=== PATIENT | male | born 2000 | race Caucasian/White ===

== ENCOUNTER 2024-04-20 17:47 | Emergency (ER) | payer OTHER ==
[~2024-04-20] VITALS: Ht 182.9 cm; Wt 149.0 kg
[2024-04-20 17:55] VITALS: BP 120/77
[2024-04-20 18:00] VITALS: BP 104/65
[2024-04-20] MEDS ORDERED: SODIUM CHLORIDE 0.9% 1,000 ML IV ONE ×2 (18:00)
[2024-04-20] MEDS ORDERED: KETOROLAC TROMETHAMINE 30 MG/ML SDV IV ONE (18:00)
[2024-04-20] MEDS ORDERED: METOCLOPRAMIDE HCL 10 MG/2 ML SDV IV ONE (18:00)
[2024-04-20] MEDS ORDERED: DiphenhydrAMINE HCL 50 MG/ML SDV IV ONE (18:00)
[2024-04-20 18:15] VITALS: BP 116/68
[2024-04-20] MEDS ORDERED: NAPROXEN 250 MG/TAB PO ONE (18:40)
[2024-04-20 18:54] VITALS: BP 104/65
== END 2024-04-20 18:57 | disposition home or self-care (01) | DRG 103 ==
LOC: ED 17:47
DX: R51.9 Headache, unspecified (principal); H57.89 Other specified disorders of eye and adnexa; E66.9 Obesity, unspecified